=== PATIENT | female | born 1950 | race Caucasian/White ===

== ENCOUNTER 2016-09-15 13:17 | Outpatient (CLI) | payer MEDICARE, BC | END 2016-09-15 13:18 | disposition home or self-care (01) | DX: T84.84XA Pain due to internal orthopedic prosthetic devices, implants and grafts, initial encounter (principal) ==

== ENCOUNTER 2016-11-06 09:41 | Outpatient (CLI) | payer MEDICARE, BC ==
--- NOTE | 2016-11-06 14:57 | Ultrasound Report ---
THYROID ULTRASOUND: 11/06/2016 CLINICAL HISTORY: The patient has had Nuclear Medicine treatment for former hot nodules. The patient had a left thyroid biopsy that was negative. The patient has noted that there are thyroid nodules that are growing within the left lobe of the thyroid. TECHNIQUE: Real-time scanning was performed with senior patient account representative static images obtained. FINDINGS: The right lobe of the thyroid measures 2.8 cm by 0.5 cm by 0.54 cm for a volume of 0.45. The right lobe of the thyroid is atrophic. There are no nodules seen in the right lobe of the thyroid. The thyroid isthmus measures 0.26 cm. The left lobe of the thyroid measures 6.2 cm by 4.1 cm by 3.6 cm for a volume of 47 cubic centimeters. The left lobe of the thyroid demonstrates at least two nodules. The smaller one is mildly hypoechoic and is mildly complex. It lies in the medial superior aspect of the left lobe and measures 1.1 cm by 1.1 cm by 0.8 cm. Occupying most of the left lobe of the thyroid is a large primarily solid nodule with a few cystic areas within it. This nodule measures 3.8 cm by 3.8 cm by 3.4 cm. It extends from the superior to inferior aspect of the left lobe and from the medial to lateral aspect of the left lobe. This shows increased vascularity. Recommend that this nodule undergo needle aspiration biopsy under ultrasound guidance for further evaluation. IMPRESSION: 1. ATROPHIC RIGHT LOBE OF THE THYROID IS NOTED. 2. AN 1.1 CM BY 1.1 CM BY 0.8 CM MILDLY COMPLEX HYPOECHOIC NODULE IS SEEN IN THE MEDIAL SUPERIOR ASPECT OF THE LEFT LOBE OF THE THYROID. THIS NODULE IS PROBABLY OF BENIGN ETIOLOGY. RECOMMEND IT BE FOLLOWED WITH A REPEAT ULTRASOUND IN 12 TO 24 MONTHS FOR FURTHER EVALUATION. 3. A 3.8 CM BY 3.8 CM BY 3.4 CM PRIMARILY SOLID NODULE WITH INCREASED VASCULARITY IS NOTED OCCUPYING AND ENLARGING MOST OF THE LEFT LOBE. STRONGLY RECOMMEND NEEDLE ASPIRATION BIOPSY UNDER ULTRASOUND GUIDANCE TO EXCLUDE A THYROID CARCINOMA. COMMENT: Dr. Gaitan faxed the above findings and recommendations to patient's physician on 11/06/2016 at 1:20 p.m. JOB #: [id number] EXT JOB #: [id number] [facility]
== END 2016-11-06 09:42 | disposition home or self-care (01) ==
LOC: DI 09:41
PROVIDERS: ATTEND Family Medicine
DX: E04.1 Nontoxic single thyroid nodule (principal); E03.4 Atrophy of thyroid (acquired)
CPT/HCPCS: 76536

== ENCOUNTER 2016-11-17 15:01 | Outpatient (CLI) | payer MEDICARE, BC ==
--- NOTE | 2016-11-17 16:43 | Ultrasound Report ---
RIGHT BREAST ULTRASOUND: 11/17/2016 CLINICAL INDICATION: Abnormal mammogram. TECHNIQUE: Real-time scanning was performed with sales representative uniforms static images obtained. FINDINGS: Ultrasound of the right upper inner quadrant was performed, directed to the persistent nod ule in the right upper inner quadrant seen on films of 10/29/2016. At the 1 o'clock position, approximately 5 cm from the nipple, there is a hypoechoic shadowing nodule , measuring 0.9 x 0.7 x 0.6 cm. It demonstrates irregular margins and peripheral vascularity. Addit ionally, at the 12:30 position approximately 5 cm from the nipple, there is a hypoechoic nodule with irregular margins and some posterior acoustic shadowing, measuring 0.7 x 0.5 x 0.5 cm. The appearanc e of both of these nodules is suspicious. No axillary adenopathy is appreciated. IMPRESSION: SUSPICIOUS HYPOECHOIC SHADOWING NODULES IN THE RIGHT UPPER INNER QUADRANT. RECOMMENDATION: Biopsy. The nodules appear amenable to ultrasound-guided core needle biopsy. BI-RADS category 4, suspicious abnormality. Results and recommendations discussed with the patient at the time of the examination. Biopsies are scheduled for 11/25/2016 at 9:45 a.m. JOB #: [id number] EXT JOB #:[id number]
== END 2016-11-17 15:02 | disposition home or self-care (01) ==
LOC: DI 15:01
PROVIDERS: ATTEND Family Medicine
DX: N63 Unspecified lump in breast (principal)
CPT/HCPCS: 76642

== ENCOUNTER 2016-11-25 09:40 | Outpatient (CLI) | payer MEDICARE, BC ==
[2016-11-25] MEDS: BUFFERED LIDOCAINE 10 ML SYRINGE IU ONE (12:04)
[2016-11-25] MEDS: BUPIVACAINE 0.5%-EPI 1:200000 PF 30 ML VIAL SUBQ ONE (12:04)
[2016-11-25 14:08] VITALS: BP 123/63
--- NOTE | 2016-11-25 17:14 | Ultrasound Report ---
ULTRASOUND-GUIDED CORE NEEDLE BIOPSY RIGHT BREAST: 11/25/2016 CLINICAL INDICATION: Abnormal mammogram. FINDINGS: Following obtaining informed consent, first the more medial of the two lesions was targete d. Using standard aseptic technique, both 1% buffered lidocaine and Sensorcaine were injected into th e right breast for local anesthesia. A small toya was made in the skin with a #11 blade. A 12-gauge C METRIXWAREro vacuum-assisted device was used to obtain three specimens. A Celero top western felt hat blocker was placed i nto the biopsy cavity under ultrasound guidance. The more lateral lesion was then targeted, and additional Sensorcaine was injected for local anesthes ia. Through the same incision, a 12-gauge Celero vacuum-assisted device was used to obtain three spec imens. A Celero cylinder marker was placed into the biopsy cavity under ultrasound guidance. The patient was taken to a separate mammography machine, and a two view digital mammogram was perform ed, documenting the marker placements and no significant postbiopsy hematoma. The wound was dressed and ice applied. The patient was observed for approximately 15 minutes, then wa s discharged from [facility] in good condition following instructions on wound care and obtai ana biopsy results. The tissue was sent for histologic analysis. IMPRESSION: ULTRASOUND-GUIDED BIOPSY OF TWO SUSPICIOUS LESIONS IN THE UPPER INNER RIGHT BREAST. AN ADDENDUM WILL BE MADE TO THIS REPORT WHEN PATHOLOGY IS REVIEWED TO ESTABLISH CONCORDANCE. JOB #: [id number] EXT JOB #:[id number]
--- NOTE | 2016-12-09 15:47 | Mammography Report ---
EXAM: [id number] US/BX ([id number]) ULTRASOUND-GUIDED CORE NEEDLE BIOPSY RIGHT BREAST: 11/25/2016 CLINICAL INDICATION: Abnormal mammogram. FINDINGS: Following obtaining informed consent, first the more medial of the two lesions was targeted. Using standard aseptic technique, both 1% buffered lidocaine and Sensorcaine were injected into the right breast for local anesthesia. A small toya was made in the skin with a #11 blade. A 12-gauge Celero vacuum-assisted device was used to obtain three specimens. A Celero top hat blocker was placed into the biopsy cavity under ultrasound guidance. The more lateral lesion was then targeted, and additional Sensorcaine was injected for local anesthesia. Through the same incision, a 12-gauge Celero vacuum-assisted device was used to obtain three specimens. A Celero cylinder marker was placed into the biopsy cavity under ultrasound guidance. The patient was taken to a separate mammography machine, and a two view digital mammogram was performed, documenting the marker placements and no significant postbiopsy hematoma. The wound was dressed and ice applied. The patient was observed for approximately 15 minutes, then was discharged from [facility] in good condition following instructions on wound care and obtaining biopsy results. The tissue was sent for histologic analysis. IMPRESSION: ULTRASOUND-GUIDED BIOPSY OF TWO SUSPICIOUS LESIONS IN THE UPPER INNER RIGHT BREAST. AN ADDENDUM WILL BE MADE TO THIS REPORT WHEN PATHOLOGY IS REVIEWED TO ESTABLISH CONCORDANCE. JOB #: [id number] EXT JOB #: [id number] Sonography Technician: Reading Radiologist: Neville Fuentes MD Releasing Radiologist: Neville Fuentes MD Released Date Time: 11/26/16 0809 <Electronically signed by Neville Fuentes MD> cc: Tisha Gusman MD ADDENDUM ADDENDUM: ULTRASOUND-GUIDED CORE NEEDLE BIOPSIES OF 11/15/2016: ADDENDUM: The procedure performed by Dr. Fuentes. Pathology reviewed by Dr. Fuentes. Final pathology results are malignant, demonstrating invasive lobular carcinoma from both sites. These results are concordant with the imaging findings. RECOMMENDATION: SURGICAL CONSULTATION FOR TREATMENT PLANNING. PREOPERATIVE BREAST MRI MAY BE HELPFUL FOR SURGICAL PLANNING AT THE SURGEON'S DISCRETION. The patient has been scheduled to obtain results from Dr. Collins on 12/01/2016 at 10 a.m. END OF ADDENDUM Addendum Sonography Technician: MAKENZIE Addendum Reading Radiologist: Neville Fuentes MD Addendum Releasing Radiologist: Neville Fuentes MD Addendum Released Date Time: 11/27/16 1424 MTDD
== END 2016-11-25 09:41 | disposition home or self-care (01) ==
LOC: DI 09:40
PROVIDERS: ATTEND Family Medicine
DX: C50.211 Malignant neoplasm of upper-inner quadrant of right female breast (principal); Z17.0 Estrogen receptor positive status [ER+]
CPT/HCPCS: 19083; G0206; 88305; 88341; 88342; 88360; 88377

== ENCOUNTER 2016-11-30 10:16 | Day surgery (SDC) | payer MEDICARE, BC ==
[2016-11-30] MEDS ORDERED: LACTATED RINGERS 1,000 ML IV ONE (11:27)
--- NOTE | 2016-11-30 12:44 | HISTORY & PHYSICAL EXAMINATION ---
HPI - History of Present Illness HPI Comment/Other: Visit Type: Initial Consult Referring Provider: RODRIGO LIMON MD History of Present Illness: Patient is here for colonic polyps. Current Meds: COMBIPATCH 0.05-0.25 MG/DAY TRANS PTTW (ESTRADIOL-NORETHINDRONE ACET) Apply 1 patch twice per week QUDEXY XR 150 MG ORAL CS24 (TOPIRAMATE) Take 1 tab by mouth daily BUPROPION HCL ER (XL) 300 MG ORAL [id number] (BUPROPION HCL) Take 1 tab by mouth daily CITALOPRAM HYDROBROMIDE 20 MG TABS (CITALOPRAM HYDROBROMIDE) Take one tablet by mouth daily CONCERTA 36 MG ORAL CR-TABS (METHYLPHENIDATE HCL) Take 1 tab by mouth daily ABILIFY 2 MG ORAL TABS (ARIPIPRAZOLE) Take 1 tab by mouth daily Allergies: Past Medical History: Reviewed history and no changes required: Heartburn Acid reflux Thyroid problems Depression Anxiety Panic Attacks Past Surgical History: Reviewed history and no changes required: Appendectomy Right knee 2012 Rigth knee replacement 2013 Tonsilectomy right ovary removed Family History Summary: Father (biol.) - Has Family History of Liver Disease - Entered On: 10/23/2016 Risk Factors: Smoked Tobacco Use: Former smoker Review of Systems See HPI Vital Signs: Problems were reviewed with the patient during this visit. Medications were reviewed with the patient during this visit. Allergies were reviewed with the patient during this visit. No known allergies. Physical Exam General: well developed, well nourished, in no acute distress Lungs: clear bilaterally to A & P Heart: regular rate and rhythm, S1, S2 without murmurs, rubs, gallops, or clicks Abdomen: bowel sounds positive; abdomen soft and non-tender without masses, organomegaly, or hernias noted Pulses: pulses normal in all 4 extremities Extremities: no clubbing, cyanosis, edema, or deformity noted with normal full range of motion of all joints Cervical Nodes: no significant adenopathy Psych: alert and cooperative; normal mood and affect; normal attention span and concentration Problem # 1: Colonic polyp Proceed with colonoscopy. 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 Social & Family Hx - Social History ETOH Use: Wine, Beer, Liquor Meds/Allgy - Home Medications Home Medications: Ambulatory Orders Medication Instructions Recorded Confirmed Aripiprazole 1 tab PO DAILY 11/26/16 11/30/16 Bupropion HCl [Bupropion Xl] 1 tab PO DAILY 11/26/16 11/30/16 Citalopram Hydrobromide 1 tab PO DAILY 11/26/16 11/30/16 [Citalopram HBr] Hydrocodone/Acetaminophen 1 - 2 tab PO Q6HR 11/26/16 11/26/16 [Hydrocodon-Acetaminophen 5-325] Methylphenidate HCl 1 tab PO DAILY 11/26/16 11/30/16 [Methylphenidate ER] Topiramate 1 tab PO DAILY 11/26/16 11/30/16 - Allergies Allergies/Adverse Reactions: Allergies Allergy/AdvReac Type Severity Reaction Status Date / Time No Known Drug Allergies Allergy Verified 11/26/16 14:19
[2016-11-30] MEDS ORDERED: fentaNYL 100 MCG/2 ML VIAL IVP ONE (13:28)
[2016-11-30] MEDS ORDERED: MIDAZOLAM 2 MG/2 ML VIAL IVP ONE (13:28)
[2016-11-30 15:06] VITALS: BP 112/75
== END 2016-11-30 10:17 | disposition home or self-care (01) ==
LOC: SDS 10:16
PROVIDERS: ATTEND Surgery
PROC: 0DJD8ZZ Inspection of Lower Intestinal Tract, Via Natural or Artificial Opening Endoscopic (ICD-10-PCS; principal; 2016-11-30 11:45)
DX: Z12.11 Encounter for screening for malignant neoplasm of colon (principal); K57.30 Diverticulosis of large intestine without perforation or abscess without bleeding; K21.9 Gastro-esophageal reflux disease without esophagitis; Z86.010 Personal history of colon polyps; F32.9 Major depressive disorder, single episode, unspecified; F41.9 Anxiety disorder, unspecified; Z87.891 Personal history of nicotine dependence; K64.8 Other hemorrhoids
CPT/HCPCS: G0105; J7120

== ENCOUNTER 2018-06-18 12:31 | Outpatient (CLI) | payer MEDICARE, BC ==
[2018-06-18 14:18] LABS: BASOPHILS # (AUTO) 0.1 10^3/uL (0.0-0.1); BASOPHILS % (AUTO) 1.4 %; EOSINOPHILS # (AUTO) 0.1 10^3/uL (0.0-0.7); EOSINOPHILS % (AUTO) 3.2 %; HGB - HEMOGLOBIN 13.3 g/dL (12.0-16.0); LYMPHOCYTES # (AUTO) 0.5 10^3/uL (1.5-3.5); LYMPHOCYTES % (AUTO) 12.9 %; MEAN CORPUSCULAR HEMOGLOBIN 28.5 pg (27.0-31.0); MEAN CORPUSCULAR HGB CONC 33.8 g/dL (32.0-36.0); MEAN CORPUSCULAR VOLUME 84.2 fL (81.0-99.0); MEAN PLATELET VOLUME 7.2 fL (7.9-10.8); MONOCYTES # (AUTO) 0.3 10^3/uL (0.0-1.0); MONOCYTES % (AUTO) 8.3 %; NEUTROPHILS # (AUTO) 3.1 10^3/uL (1.5-6.6); NEUTROPHILS % (AUTO) 74.2 %; PLT - PLATELET COUNT 288 10^3/uL (130-450); RED BLOOD COUNT 4.66 10^6/uL (4.20-5.40); RED CELL DISTRIBUTION WIDTH 15.3 % (12.0-15.0); WHITE BLOOD COUNT 4.2 x10^3/uL (4.8-10.8)
[2018-06-18 14:37] LABS: CALCIUM 9.1 mg/dL (8.5-10.3); CREATININE 0.8 mg/dL (0.4-1.0)
[2018-06-18 14:52] LABS: HB2 TOTAL 13.8 g/dL; HEMOGLOBIN A1C 0.55 g/dL; HEMOGLOBIN A1C % 5.8 % (4.6-6.2)
[2018-06-20 13:42] LABS: HIV AG/AB 4TH GEN NON-REACTIVE (NON-REACTIVE)
[2018-06-20 15:27] LABS: HEPATITIS C ANTIBODY NON-REACTIVE (NON-REACTIVE)
== END 2018-06-18 12:32 | disposition home or self-care (01) ==
LOC: LAB 12:31
PROVIDERS: ATTEND Orthopaedic Surgery
DX: Z01.812 Encounter for preprocedural laboratory examination (principal); Z01.810 Encounter for preprocedural cardiovascular examination; M17.12 Unilateral primary osteoarthritis, left knee
CPT/HCPCS: 36415; 80048; 82040; 83036; 84134; 85025; 86803; 93005; G0475; 87389

== ENCOUNTER 2018-06-22 07:58 | Outpatient (CLI) | payer MEDICARE, BC ==
[2018-06-22 10:46] LABS: HEMOGLOBIN A1C 0.55 g/dL; HEMOGLOBIN A1C % 5.7 % (4.6-6.2)
[2018-06-22 17:52] LABS: ALBUMIN 3.8 g/dL (3.2-5.5); ALBUMIN/GLOBULIN RATIO 1.2 (1.0-2.2); BILIRUBIN,TOTAL 0.3 mg/dL (0.2-1.0); CALCIUM 9.1 mg/dL (8.5-10.3); CREATININE 0.9 mg/dL (0.4-1.0); TOTAL PROTEIN 7.1 g/dL (6.7-8.2)
== END 2018-06-22 07:59 | disposition home or self-care (01) ==
LOC: LAB.F 07:58
PROVIDERS: ATTEND Family Medicine
DX: R73.9 Hyperglycemia, unspecified (principal)
CPT/HCPCS: 36415; 80053; 80061; 83036; 83721

== ENCOUNTER 2018-08-03 14:51 | Outpatient (CLI) | payer MEDICARE, BC ==
[2018-08-03 18:10] LABS: BASOPHILS # (AUTO) 0.1 10^3/uL (0.0-0.1); BASOPHILS % (AUTO) 1.1 %; EOSINOPHILS # (AUTO) 0.2 10^3/uL (0.0-0.7); EOSINOPHILS % (AUTO) 4.6 %; HGB - HEMOGLOBIN 12.1 g/dL (12.0-16.0); LYMPHOCYTES # (AUTO) 0.8 10^3/uL (1.5-3.5); LYMPHOCYTES % (AUTO) 14.5 %; MEAN CORPUSCULAR HEMOGLOBIN 28.4 pg (27.0-31.0); MEAN CORPUSCULAR HGB CONC 32.9 g/dL (32.0-36.0); MEAN CORPUSCULAR VOLUME 86.3 fL (81.0-99.0); MONOCYTES # (AUTO) 0.5 10^3/uL (0.0-1.0); MONOCYTES % (AUTO) 8.9 %; NEUTROPHILS # (AUTO) 3.8 10^3/uL (1.5-6.6); NEUTROPHILS % (AUTO) 70.9 %; PLT - PLATELET COUNT 357 10^3/uL (130-450); RED BLOOD COUNT 4.27 10^6/uL (4.20-5.40); RED CELL DISTRIBUTION WIDTH 15.3 % (12.0-15.0); WHITE BLOOD COUNT 5.3 x10^3/uL (4.8-10.8)
[2018-08-03 18:18] LABS: ALBUMIN 3.7 g/dL (3.2-5.5); ALBUMIN/GLOBULIN RATIO 1.2 (1.0-2.2); ALKALINE PHOSPHATASE 68 IU/L (42-121); ALT ALANINE AMINOTRANSFERASE 55 IU/L (10-60); AST ASPARTATE AMINOTRANSFERASE 49 IU/L (10-42); BILIRUBIN,TOTAL < 0.2 mg/dL (0.2-1.0); BUN - BLOOD UREA NITROGEN 16 mg/dL (6-20); CALCIUM 8.9 mg/dL (8.5-10.3); CARBON DIOXIDE - CO2 24 mmol/L (21-32); CHLORIDE 104 mmol/L (101-111); CREATININE 0.9 mg/dL (0.4-1.0); GFR - MDRD 63 (>89); GLUCOSE 122 mg/dL (70-100); SODIUM 138 mmol/L (135-145); TOTAL PROTEIN 6.8 g/dL (6.7-8.2)
== END 2018-08-03 14:52 | disposition home or self-care (01) ==
LOC: LAB.F 14:51
DX: C50.912 Malignant neoplasm of unspecified site of left female breast (principal)
CPT/HCPCS: 36415; 80053; 82378; 85025; 86300

== ENCOUNTER 2018-12-30 15:17 | Outpatient (CLI) | payer MEDICARE, BC | END 2018-12-30 15:18 | disposition home or self-care (01) | LOC: LAB.S 15:17 | DX: G25.81 Restless legs syndrome (principal) | CPT/HCPCS: 36415; 82607; 82728; 83921; 84466 ==